=== PATIENT | female | born 1940 ===

== ENCOUNTER 2021-09-27 18:20 | Inpatient (IN) | payer MEDICARE ==
[2021-10-01] MEDS ORDERED: REMEDY ESSENTIAL ZINC PASTE 113 GM TOP SCH (21:00)
== END 2021-09-28 15:49 | disposition home or self-care (01) | DRG 951 ==
PROVIDERS: ADMIT Nurse Practitioner Acute Care; ATTEND Nurse Practitioner Acute Care
DX: Z00.00 Encounter for general adult medical examination without abnormal findings (principal)

== ENCOUNTER 2021-10-01 21:35 | Inpatient (IN) | payer MEDICARE ==
[~2021-10-01] VITALS: Ht 175.3 cm; Wt 65.8 kg
--- NOTE | 2021-10-01 21:17 | NUR ---
Patient arrived in the unit via gurney from [facility], accompanied by EMT's. Awake, alert and oriented x 3, able to verbalized needs and concern. In no apparent distress noted, calm and cooperative. Oriented to staff, room, call light, bed
--- NOTE | 2021-10-01 21:49 | NUR ---
Safety measures and fall precaution initiated. Routine admission care done. Plan of care initiated.
[2021-10-01 21:51] VITALS: BP 114/68
[2021-10-01] MEDS ORDERED: LACT-246 PO (22:27)
[2021-10-01] MEDS ORDERED: ESCI20TA PO (22:27)
[2021-10-01] MEDS ORDERED: NITR1OIN2 TP (22:27)
[2021-10-01] MEDS ORDERED: PANT40TA49 PO (22:27)
[2021-10-01] MEDS ORDERED: VALS80TA2 PO (22:27)
[2021-10-01] MEDS ORDERED: TEMA15CA PO (22:27)
[2021-10-01] MEDS ORDERED: CEFA2PLA10 IV (22:27)
[2021-10-01] MEDS ORDERED: METO50TA16 PO (22:27)
[2021-10-01] MEDS ORDERED: HYDR100T27 PO (22:27)
[2021-10-01] MEDS ORDERED: APIX5TAB PO (22:27)
[2021-10-01] MEDS ORDERED: MEMA10TA PO (22:27)
[2021-10-01] MEDS ORDERED: LEVO75TA7 PO (22:27)
[2021-10-01] MEDS ORDERED: DONE5TAB34 PO (22:27)
[2021-10-01] MEDS ORDERED: ASPI81TA31 PO (22:27)
[2021-10-01] MEDS ORDERED: NIFE60TA2 PO (22:27)
[2021-10-01] MEDS ORDERED: ACET-3117 PO (22:27)
[2021-10-02] MEDS: NITROGLYCERIN OINT 1 GM PACKET TP SCH ×3 (01:00→20:37)
[2021-10-02] MEDS: METOPROLOL TARTRATE 50 MG TABLET PO SCH ×4 (01:20→17:39)
[2021-10-02] MEDS ORDERED: VANCOMYCIN IV 400 ML ONE (02:46)
[2021-10-02] MEDS ORDERED: CEFAZOLIN 1 G VIAL ONE (03:07)
[2021-10-02] MEDS: CEFAZOLIN 2 G in IV DEXTROSE 5% 100 ML IV SCH ×3 (03:21→19:25)
[2021-10-02 04:15] VITALS: BP 125/69
[2021-10-02] MEDS: LEVOTHYROXINE SODIUM 75 MCG TABLET PO SCH (06:16)
[2021-10-02] MEDS: PANTOPRAZOLE SODIUM 40 MG TABLET.DR PO SCH (06:16)
[2021-10-02] MEDS: hydrALAZINE HCL 50 MG TABLET PO SCH ×3 (06:17→22:30)
--- NOTE | 2021-10-02 06:33 | NUR ---
Shift End Report: Slept good. Reoriented to time and place. No significant event reported all night. All needs attended and met. Continue current rehab plan of care. No complaint presented. VS stable.
[2021-10-02 07:56] VITALS: BP 141/93
[2021-10-02] MEDS: DONEPEZIL 5 MG TABLET PO SCH ×2 (09:25→20:33)
[2021-10-02] MEDS: MEMANTINE HCL 10 MG TABLET PO SCH ×2 (09:25→20:33)
[2021-10-02] MEDS: ASPIRIN 81 MG TAB.CHEW PO SCH (09:25)
[2021-10-02] MEDS: VALSARTAN 80 MG TABLET PO SCH (09:25)
[2021-10-02] MEDS: NIFEdipine XL 60 MG TABSR PO SCH (09:26)
[2021-10-02] MEDS: ESCITALOPRAM OXALATE 10 MG TABLET PO SCH (09:26)
[2021-10-02] MEDS: REMEDY ESSENTIAL ZINC PASTE 113 GM TOP SCH ×2 (09:27→20:35)
[2021-10-02] MEDS: APIXABAN 5 MG TABLET PO SCH ×2 (09:27→20:35)
[2021-10-02] MEDS: ENSURE WITH FIBER 237 ML LIQUID (CHOCOLATE) PO SCH ×2 (09:34→17:39)
[2021-10-02 15:40] VITALS: BP 112/52
--- NOTE | 2021-10-02 18:43 | NUR ---
Received Pt AAO X 1-2. Noted with periods of confusion and disorientation able to let simple needs known respiration even and unlabored, no SOB at room air. Up with PT /OT able for evaluation tolerated well, incontinent of bowel and bladder good astrid care rendered.No C/O of pain or acute distress noted. All needs attended, family nephew visited. Call light placed within reach. Bed in low position with bed alarm on. Will continue to monitor for comfort and safety
[2021-10-02 19:53] VITALS: BP 123/51
[2021-10-02] MEDS: TEMAZEPAM 15 MG CAPSULE PO PRN (20:39)
[2021-10-03] MEDS: METOPROLOL TARTRATE 50 MG TABLET PO SCH ×4 (00:07→17:35)
[2021-10-03] MEDS: CEFAZOLIN 2 G in IV DEXTROSE 5% 100 ML IV SCH ×3 (02:55→19:10)
[2021-10-03 04:58] VITALS: BP 156/80
[2021-10-03] MEDS: LEVOTHYROXINE SODIUM 75 MCG TABLET PO SCH (05:38)
[2021-10-03] MEDS: PANTOPRAZOLE SODIUM 40 MG TABLET.DR PO SCH (05:39)
[2021-10-03] MEDS: hydrALAZINE HCL 50 MG TABLET PO SCH ×3 (05:39→23:03)
[2021-10-03 07:32] VITALS: BP 173/87
[2021-10-03] MEDS: ASPIRIN 81 MG TAB.CHEW PO SCH (09:02)
[2021-10-03] MEDS: DONEPEZIL 5 MG TABLET PO SCH ×2 (09:02→21:38)
[2021-10-03] MEDS: VALSARTAN 80 MG TABLET PO SCH (09:02)
[2021-10-03] MEDS: APIXABAN 5 MG TABLET PO SCH ×2 (09:03→21:40)
[2021-10-03] MEDS: REMEDY ESSENTIAL ZINC PASTE 113 GM TOP SCH ×2 (09:04→21:39)
[2021-10-03] MEDS: MEMANTINE HCL 10 MG TABLET PO SCH ×2 (09:04→21:38)
[2021-10-03] MEDS: ENSURE WITH FIBER 237 ML LIQUID (CHOCOLATE) PO SCH ×2 (09:04→17:35)
[2021-10-03] MEDS: ESCITALOPRAM OXALATE 10 MG TABLET PO SCH (09:04)
[2021-10-03] MEDS: NIFEdipine XL 60 MG TABSR PO SCH (09:04)
[2021-10-03] MEDS: NITROGLYCERIN OINT 1 GM PACKET TP SCH ×2 (09:05→21:39)
--- NOTE | 2021-10-03 13:21 | NUR ---
Notified DR Caballero pt compliant of low back pain when moving, with new order for Tylenol 650 mg PO TID for pain order noted and carried out.
--- NOTE | 2021-10-03 15:52 | NUR ---
INTERDISCIPLINARY TEAM CONFERENCE
[2021-10-03 16:00] VITALS: BP 108/82
[2021-10-03] MEDS: ACETAMINOPHEN 325 MG TABLET PO SCH (17:34)
[2021-10-03 20:24] VITALS: BP 121/59
--- NOTE | 2021-10-03 20:45 | NUR ---
RECEIVED PATIENT IN HER ROOM IN BED. SHE IS NOTED A/O X 1. CALM AND COOPERATIVE. HER BREATHING IS EVEN AND UNLABORED. V/S STABLE. IV ON LEFT UPPER ARM NOTED INTACT AND PATENT. SAFETY AND FALL PRECAUTIONS ARE IN PLACE. PATIENT'S NEED ARE MET AT THIS TIME. WILL CONTINUE TO MONITOR.
[2021-10-04] MEDS: METOPROLOL TARTRATE 50 MG TABLET PO SCH ×5 (00:28→23:59)
[2021-10-04] MEDS: CEFAZOLIN 2 G in IV DEXTROSE 5% 100 ML IV SCH ×3 (03:14→18:01)
[2021-10-04 04:00] VITALS: BP 116/60
[2021-10-04] MEDS: PANTOPRAZOLE SODIUM 40 MG TABLET.DR PO SCH (06:06)
[2021-10-04] MEDS: hydrALAZINE HCL 50 MG TABLET PO SCH ×3 (06:06→22:27)
[2021-10-04] MEDS: LEVOTHYROXINE SODIUM 75 MCG TABLET PO SCH (06:06)
[2021-10-04 07:07] LABS: HEMATOCRIT 32.4 % (31.2-41.9); MEAN CORPUSCULAR HEMOGLOBIN 31.2 uug (24.7-32.8); MEAN CORPUSCULAR VOLUME 91.7 fL (75.5-95.3); PLATELET COUNT (AUTO) 589 K/uL (179-408)
[2021-10-04 07:25] LABS: THYROID STIMULATING HORMONE 3.306 mIU/mL (0.358-3.740)
[2021-10-04 07:32] LABS: BILIRUBIN,TOTAL 0.4 mg/dL (0.2-1.0); CREATININE 0.9 mg/dL (0.6-1.3); PHOSPHOROUS 2.4 mg/dL (2.5-4.9); POTASSIUM 3.3 mmol/L (3.5-5.1); TOTAL PROTEIN, SERUM 6.3 g/dL (6.4-8.2)
[2021-10-04 07:54] VITALS: BP 102/69
[2021-10-04] MEDS: ASPIRIN 81 MG TAB.CHEW PO SCH (08:33)
[2021-10-04] MEDS: ESCITALOPRAM OXALATE 10 MG TABLET PO SCH (08:34)
[2021-10-04] MEDS: VALSARTAN 80 MG TABLET PO SCH (08:34)
[2021-10-04] MEDS: DONEPEZIL 5 MG TABLET PO SCH ×2 (08:34→20:44)
[2021-10-04] MEDS: NIFEdipine XL 60 MG TABSR PO SCH (08:34)
[2021-10-04] MEDS: MEMANTINE HCL 10 MG TABLET PO SCH ×2 (08:34→20:45)
[2021-10-04] MEDS: NITROGLYCERIN OINT 1 GM PACKET TP SCH ×2 (08:35→20:47)
[2021-10-04] MEDS: ENSURE WITH FIBER 237 ML LIQUID (CHOCOLATE) PO SCH (08:35)
[2021-10-04] MEDS: ACETAMINOPHEN 325 MG TABLET PO SCH ×3 (08:35→17:14)
[2021-10-04] MEDS: REMEDY ESSENTIAL ZINC PASTE 113 GM TOP SCH ×2 (08:35→20:45)
[2021-10-04] MEDS: APIXABAN 5 MG TABLET PO SCH ×2 (08:36→20:48)
[2021-10-04] MEDS ORDERED: NEUTRA PHOS PACKET PO ONE ×2 (09:00→10:00)
[2021-10-04] MEDS ORDERED: POTASSIUM CHLORIDE 20 MEQ TAB.PRT.SR PO ONE (10:00)
[2021-10-04 15:16] LABS: *BILIRUBIN,URIN NEGATIVE (NEGATIVE); *BLOOD, URINE NEGATIVE (NEGATIVE); *CLARITY,URINE CLEAR (CLEAR); *COLOR,URINE YELLOW (YELLOW); *KETONES,URINE NEGATIVE (NEGATIVE); *UROBILINOGEN,URINE 0.2 E.U./dl (NORMAL); LEUKOCYTE ESTERASE ,URINE TRACE (NEGATIVE); NITRITE, URINE NEGATIVE (NEGATIVE); UGLUCOSE NEGATIVE (NEGATIVE)
[2021-10-04] MEDS: PROTEIN SUPPLEMENT (PROSTAT) 30 ML LIQUID PO SCH ×2 (15:17→17:15)
[2021-10-04] MEDS: ENSURE ENLIVE (VAN) 240 ML LIQUID PO SCH ×2 (15:17→17:15)
[2021-10-04 15:39] LABS: RBC,URINE 0-3 /HPF (0-3)
[2021-10-04 15:40] LABS: BACTERIA,URINE FEW /HPF (NONE SEEN); SQUAMOUS EPITHELIAL CELL,UR MODERATE /HPF (NONE SEEN)
[2021-10-04 15:43] VITALS: BP 104/51
--- NOTE | 2021-10-04 16:14 | NUR ---
INDIVIDUALIZED PLAN OF CARE
--- NOTE | 2021-10-04 18:07 | NUR ---
Patient tolerated care well throughout shift. Patient complaining of pain during PT/OT, but managed through medicinal interventions. Patient alert and oriented x 2-3, but forgetful during shift. Patient complaining of wanting to go home, but reeducated about purpose with rehab. IV site patent and intact. Bed left in lowest position with call light within reach. Will endorse information to PM nurse.
[2021-10-04 20:03] VITALS: BP_SYST 104; BP_SYST 133; BP_DIAS 55; BP_DIAS 79
[2021-10-04] MEDS: TEMAZEPAM 15 MG CAPSULE PO PRN (20:50)
--- NOTE | 2021-10-05 00:28 | NUR ---
IV out, re-inserted G#20 x 1 to Left Hand , with good blood return. Secured with tegaderm and Covan dressing. Patient tolerated procedure well.
[2021-10-05] MEDS: CEFAZOLIN 2 G in IV DEXTROSE 5% 100 ML IV SCH ×3 (03:03→18:05)
[2021-10-05 04:04] VITALS: BP 112/76
[2021-10-05] MEDS: LEVOTHYROXINE SODIUM 75 MCG TABLET PO SCH (06:07)
[2021-10-05] MEDS: PANTOPRAZOLE SODIUM 40 MG TABLET.DR PO SCH (06:07)
[2021-10-05] MEDS: hydrALAZINE HCL 50 MG TABLET PO SCH ×3 (06:08→21:20)
[2021-10-05] MEDS: METOPROLOL TARTRATE 50 MG TABLET PO SCH ×4 (06:09→23:47)
[2021-10-05 07:49] VITALS: BP 135/72
[2021-10-05] MEDS: ACETAMINOPHEN 325 MG TABLET PO SCH ×3 (08:32→16:49)
[2021-10-05] MEDS: ESCITALOPRAM OXALATE 10 MG TABLET PO SCH (08:32)
[2021-10-05] MEDS: ASPIRIN 81 MG TAB.CHEW PO SCH (08:32)
[2021-10-05] MEDS: VALSARTAN 80 MG TABLET PO SCH (08:32)
[2021-10-05] MEDS: NIFEdipine XL 60 MG TABSR PO SCH (08:33)
[2021-10-05] MEDS: DONEPEZIL 5 MG TABLET PO SCH ×2 (08:33→20:22)
[2021-10-05] MEDS: MEMANTINE HCL 10 MG TABLET PO SCH ×2 (08:33→20:27)
[2021-10-05] MEDS: APIXABAN 5 MG TABLET PO SCH ×2 (08:35→20:26)
[2021-10-05] MEDS: ENSURE ENLIVE (VAN) 240 ML LIQUID PO SCH ×3 (08:35→16:49)
[2021-10-05] MEDS: PROTEIN SUPPLEMENT (PROSTAT) 30 ML LIQUID PO SCH ×2 (08:35→16:49)
[2021-10-05] MEDS: REMEDY ESSENTIAL ZINC PASTE 113 GM TOP SCH ×2 (08:35→20:28)
[2021-10-05] MEDS: NITROGLYCERIN OINT 1 GM PACKET TP SCH ×2 (08:35→20:27)
[2021-10-05] MEDS: HYDROCODONE/APAP 5-325MG TABLET PO PRN (10:04)
--- NOTE | 2021-10-05 10:59 | NUR ---
Patient complaining of lower back pain. Dr. Ruth notified. Appropriate orders placed. Medication administered. Patient now resting comfortably in bed.
--- NOTE | 2021-10-05 12:42 | NUR ---
Patient seen by Doctor at bedside. Patient sleeping during 's assessment. Will endorse information to patient upon waking.
[2021-10-05 15:16] VITALS: BP 101/52
[2021-10-05 16:15] VITALS: BP 121/62
--- NOTE | 2021-10-05 18:32 | NUR ---
Patient tolerated care well throughout shift. Patient seen by Dr. Ruth. Patient educated with up to date care. IV site in need of flushing multiple times, but patent when flushed. Patient tolerated PT/OT today. Bed left in lowest position with call light within reach. Will endorse information to PM nurse.
[2021-10-05 20:00] VITALS: BP 148/65
--- NOTE | 2021-10-06 03:00 | NUR ---
IV out, inserted a new IV access on RFA #22. Patent and intact, flushed with NS. Secured with Coban wrap.
[2021-10-06] MEDS: CEFAZOLIN 2 G in IV DEXTROSE 5% 100 ML IV SCH ×3 (04:00→19:40)
[2021-10-06 04:55] VITALS: BP 158/93
[2021-10-06] MEDS: hydrALAZINE HCL 50 MG TABLET PO SCH ×3 (06:15→21:08)
[2021-10-06] MEDS: PANTOPRAZOLE SODIUM 40 MG TABLET.DR PO SCH (06:15)
[2021-10-06] MEDS: LEVOTHYROXINE SODIUM 75 MCG TABLET PO SCH (06:15)
[2021-10-06] MEDS: METOPROLOL TARTRATE 50 MG TABLET PO SCH ×3 (06:15→17:59)
[2021-10-06 08:17] VITALS: BP 156/86
[2021-10-06] MEDS: ASPIRIN 81 MG TAB.CHEW PO SCH (09:41)
[2021-10-06] MEDS: ACETAMINOPHEN 325 MG TABLET PO SCH ×3 (09:41→17:59)
[2021-10-06] MEDS: ESCITALOPRAM OXALATE 10 MG TABLET PO SCH (09:41)
[2021-10-06] MEDS: MEMANTINE HCL 10 MG TABLET PO SCH ×2 (09:42→20:40)
[2021-10-06] MEDS: APIXABAN 5 MG TABLET PO SCH ×2 (09:42→20:39)
[2021-10-06] MEDS: NIFEdipine XL 60 MG TABSR PO SCH (09:42)
[2021-10-06] MEDS: VALSARTAN 80 MG TABLET PO SCH (09:42)
[2021-10-06] MEDS: DONEPEZIL 5 MG TABLET PO SCH ×2 (09:43→20:40)
[2021-10-06] MEDS: ENSURE ENLIVE (VAN) 240 ML LIQUID PO SCH ×3 (09:44→18:00)
[2021-10-06] MEDS: NITROGLYCERIN OINT 1 GM PACKET TP SCH ×2 (09:45→20:41)
[2021-10-06] MEDS: REMEDY ESSENTIAL ZINC PASTE 113 GM TOP SCH ×2 (09:45→20:40)
[2021-10-06] MEDS: PROTEIN SUPPLEMENT (PROSTAT) 30 ML LIQUID PO SCH ×2 (09:46→18:00)
--- NOTE | 2021-10-06 14:02 | NUR ---
Dawn 5/ given by request prior to going for PT. Doccmented in error on different patient.
[2021-10-06 15:24] VITALS: BP 104/56
[2021-10-06 20:47] VITALS: BP 120/60
[2021-10-07] MEDS: CEFAZOLIN 2 G in IV DEXTROSE 5% 100 ML IV SCH ×3 (03:34→17:24)
[2021-10-07] MEDS: HYDROCODONE/APAP 5-325MG TABLET PO PRN ×2 (03:35→18:20)
[2021-10-07 04:35] VITALS: BP 142/69
[2021-10-07 06:06] LABS: CARBON DIOXIDE 31 mmol/L (21-32); CHLORIDE 91 mmol/L (98-107); CREATININE 0.9 mg/dL (0.6-1.3); GLUCOSE 131 mg/dL (74-106); MAGNESIUM 1.9 mg/dL (1.8-2.4); PHOSPHOROUS 2.8 mg/dL (2.5-4.9); POTASSIUM 3.3 mmol/L (3.5-5.1); UREA NITROGEN, BLOOD 21 mg/dL (7-18)
[2021-10-07] MEDS: PANTOPRAZOLE SODIUM 40 MG TABLET.DR PO SCH (06:31)
[2021-10-07] MEDS: METOPROLOL TARTRATE 50 MG TABLET PO SCH ×5 (06:31→23:33)
[2021-10-07] MEDS: hydrALAZINE HCL 50 MG TABLET PO SCH ×3 (06:31→21:43)
[2021-10-07] MEDS: LEVOTHYROXINE SODIUM 75 MCG TABLET PO SCH (06:32)
[2021-10-07 06:40] LABS: MEAN CORPUSCULAR VOLUME 90.9 fL (75.5-95.3); PLATELET COUNT (AUTO) 620 K/uL (179-408)
[2021-10-07 08:55] VITALS: BP 144/65
[2021-10-07] MEDS: VALSARTAN 80 MG TABLET PO SCH (09:45)
[2021-10-07] MEDS: MEMANTINE HCL 10 MG TABLET PO SCH ×2 (09:45→20:37)
[2021-10-07] MEDS: ESCITALOPRAM OXALATE 10 MG TABLET PO SCH (09:45)
[2021-10-07] MEDS: DONEPEZIL 5 MG TABLET PO SCH ×2 (09:45→20:37)
[2021-10-07] MEDS: NIFEdipine XL 60 MG TABSR PO SCH (09:45)
[2021-10-07] MEDS: ASPIRIN 81 MG TAB.CHEW PO SCH (09:46)
[2021-10-07] MEDS: NITROGLYCERIN OINT 1 GM PACKET TP SCH ×2 (09:46→20:37)
[2021-10-07] MEDS: REMEDY ESSENTIAL ZINC PASTE 113 GM TOP SCH ×2 (09:46→20:38)
[2021-10-07] MEDS: ENSURE ENLIVE (VAN) 240 ML LIQUID PO SCH ×3 (09:47→17:25)
[2021-10-07] MEDS: APIXABAN 5 MG TABLET PO SCH ×2 (09:47→20:41)
[2021-10-07] MEDS: PROTEIN SUPPLEMENT (PROSTAT) 30 ML LIQUID PO SCH ×2 (09:47→17:25)
[2021-10-07] MEDS: ACETAMINOPHEN 325 MG TABLET PO SCH ×3 (09:51→17:21)
[2021-10-07] MEDS ORDERED: POTASSIUM CHLORIDE 20 MEQ TAB.PRT.SR PO ONE (12:00)
--- NOTE | 2021-10-07 13:50 | NUR ---
CRYING AND C/O DIFFICULTY BREATHING. HAVING A PANIC ATTACK. VS TAKEN. BP 103/59. PULSE 66. RESP 22 AND HYPERVENTILATING. REPOSITIONED. HOB UP. O2 SAT. 98-100% ON R/A. SONAM RICHTER INTERSTATE PLANNER NOTIFIED. NO ORDERS.
--- NOTE | 2021-10-07 14:00 | NUR ---
DOZING AT INTERVALS. COMFORTABLE AT THIS TIME.
[2021-10-07 16:52] VITALS: BP 132/64
[2021-10-07 20:06] VITALS: BP 133/67
[2021-10-07] MEDS: TEMAZEPAM 15 MG CAPSULE PO PRN (20:43)
[2021-10-08] MEDS: CEFAZOLIN 2 G in IV DEXTROSE 5% 100 ML IV SCH ×3 (02:35→19:02)
[2021-10-08 04:09] VITALS: BP 143/75
[2021-10-08] MEDS: hydrALAZINE HCL 50 MG TABLET PO SCH ×3 (06:00→21:45)
[2021-10-08] MEDS: METOPROLOL TARTRATE 50 MG TABLET PO SCH ×3 (06:00→17:12)
[2021-10-08] MEDS: PANTOPRAZOLE SODIUM 40 MG TABLET.DR PO SCH (06:01)
[2021-10-08] MEDS: LEVOTHYROXINE SODIUM 75 MCG TABLET PO SCH (06:01)
[2021-10-08] MEDS: HYDROCODONE/APAP 10-325 MG TABLET PO PRN ×2 (06:08→13:27)
[2021-10-08 08:04] VITALS: BP 130/63
[2021-10-08] MEDS: ASPIRIN 81 MG TAB.CHEW PO SCH (08:42)
[2021-10-08] MEDS: ACETAMINOPHEN 325 MG TABLET PO SCH ×3 (08:43→17:12)
[2021-10-08] MEDS: DONEPEZIL 5 MG TABLET PO SCH ×2 (08:43→20:48)
[2021-10-08] MEDS: MEMANTINE HCL 10 MG TABLET PO SCH ×2 (08:43→20:48)
[2021-10-08] MEDS: ESCITALOPRAM OXALATE 10 MG TABLET PO SCH (08:43)
[2021-10-08] MEDS: NIFEdipine XL 60 MG TABSR PO SCH (08:43)
[2021-10-08] MEDS: VALSARTAN 80 MG TABLET PO SCH (08:44)
[2021-10-08] MEDS: APIXABAN 5 MG TABLET PO SCH ×2 (08:45→20:50)
[2021-10-08] MEDS: REMEDY ESSENTIAL ZINC PASTE 113 GM TOP SCH ×2 (08:46→20:49)
[2021-10-08] MEDS: PROTEIN SUPPLEMENT (PROSTAT) 30 ML LIQUID PO SCH ×2 (08:46→17:13)
[2021-10-08] MEDS: ENSURE ENLIVE (VAN) 240 ML LIQUID PO SCH ×3 (08:46→17:13)
[2021-10-08] MEDS: NITROGLYCERIN OINT 1 GM PACKET TP SCH ×2 (08:47→20:48)
[2021-10-08 16:29] VITALS: BP 122/62
[2021-10-08 20:00] VITALS: BP 127/59
[2021-10-08] MEDS: TEMAZEPAM 15 MG CAPSULE PO PRN (20:50)
[2021-10-09] MEDS: METOPROLOL TARTRATE 50 MG TABLET PO SCH ×4 (00:01→17:52)
[2021-10-09] MEDS: CEFAZOLIN 2 G in IV DEXTROSE 5% 100 ML IV SCH ×3 (03:00→19:04)
[2021-10-09 04:00] VITALS: BP 122/66
[2021-10-09] MEDS: hydrALAZINE HCL 50 MG TABLET PO SCH ×3 (05:55→22:24)
[2021-10-09] MEDS: LEVOTHYROXINE SODIUM 75 MCG TABLET PO SCH (06:20)
[2021-10-09] MEDS: PANTOPRAZOLE SODIUM 40 MG TABLET.DR PO SCH (06:20)
[2021-10-09 07:53] VITALS: BP 129/66
[2021-10-09] MEDS: ASPIRIN 81 MG TAB.CHEW PO SCH (08:05)
[2021-10-09] MEDS: ESCITALOPRAM OXALATE 10 MG TABLET PO SCH (08:05)
[2021-10-09] MEDS: VALSARTAN 80 MG TABLET PO SCH (08:05)
[2021-10-09] MEDS: ACETAMINOPHEN 325 MG TABLET PO SCH ×3 (08:05→16:48)
[2021-10-09] MEDS: MEMANTINE HCL 10 MG TABLET PO SCH ×2 (08:05→20:24)
[2021-10-09] MEDS: DONEPEZIL 5 MG TABLET PO SCH ×2 (08:05→20:24)
[2021-10-09] MEDS: ENSURE ENLIVE (VAN) 240 ML LIQUID PO SCH ×2 (08:06→12:28)
[2021-10-09] MEDS: NIFEdipine XL 60 MG TABSR PO SCH (08:06)
[2021-10-09] MEDS: APIXABAN 5 MG TABLET PO SCH ×2 (08:06→20:27)
[2021-10-09] MEDS: PROTEIN SUPPLEMENT (PROSTAT) 30 ML LIQUID PO SCH ×2 (08:06→16:48)
[2021-10-09] MEDS: NITROGLYCERIN OINT 1 GM PACKET TP SCH ×2 (08:31→20:26)
[2021-10-09] MEDS: HYDROCODONE/APAP 10-325 MG TABLET PO PRN (08:31)
[2021-10-09] MEDS: REMEDY ESSENTIAL ZINC PASTE 113 GM TOP SCH ×2 (08:32→20:27)
[2021-10-09] MEDS: GLUCERNA SHAKE 237 ML CAN PO SCH ×2 (15:02→16:48)
[2021-10-09 16:16] VITALS: BP 124/58
[2021-10-09 20:00] VITALS: BP 125/65
[2021-10-09] MEDS: TEMAZEPAM 15 MG CAPSULE PO PRN (20:28)
[2021-10-10] MEDS: METOPROLOL TARTRATE 50 MG TABLET PO SCH ×6 (01:01→23:52)
[2021-10-10] MEDS: CEFAZOLIN 2 G in IV DEXTROSE 5% 100 ML IV SCH ×3 (02:25→19:47)
[2021-10-10 04:00] VITALS: BP 106/70
[2021-10-10] MEDS: LEVOTHYROXINE SODIUM 75 MCG TABLET PO SCH (06:14)
[2021-10-10] MEDS: PANTOPRAZOLE SODIUM 40 MG TABLET.DR PO SCH (06:14)
[2021-10-10] MEDS: hydrALAZINE HCL 50 MG TABLET PO SCH ×4 (06:14→21:42)
[2021-10-10 07:01] LABS: CARBON DIOXIDE 32 mmol/L (21-32); CHLORIDE 88 mmol/L (98-107); CREATININE 0.9 mg/dL (0.6-1.3); GLUCOSE 101 mg/dL (74-106); PHOSPHOROUS 2.9 mg/dL (2.5-4.9); POTASSIUM 3.4 mmol/L (3.5-5.1); UREA NITROGEN, BLOOD 24 mg/dL (7-18); URIC ACID 3.5 mg/dL (2.6-6.0)
[2021-10-10 07:54] LABS: THYROID STIMULATING HORMONE 3.472 mIU/mL (0.358-3.740)
[2021-10-10] MEDS: ASPIRIN 81 MG TAB.CHEW PO SCH (08:26)
[2021-10-10] MEDS: ACETAMINOPHEN 325 MG TABLET PO SCH (08:26)
[2021-10-10] MEDS: ESCITALOPRAM OXALATE 10 MG TABLET PO SCH (08:27)
[2021-10-10] MEDS: APIXABAN 5 MG TABLET PO SCH ×2 (08:27→20:14)
[2021-10-10] MEDS: VALSARTAN 80 MG TABLET PO SCH (08:31)
[2021-10-10] MEDS: DONEPEZIL 5 MG TABLET PO SCH ×2 (08:31→20:13)
[2021-10-10] MEDS: NIFEdipine XL 60 MG TABSR PO SCH (08:31)
[2021-10-10] MEDS: NITROGLYCERIN OINT 1 GM PACKET TP SCH ×2 (08:31→20:14)
[2021-10-10] MEDS: MEMANTINE HCL 10 MG TABLET PO SCH ×2 (08:31→20:13)
[2021-10-10] MEDS: PROTEIN SUPPLEMENT (PROSTAT) 30 ML LIQUID PO SCH ×2 (08:46→17:16)
[2021-10-10] MEDS: GLUCERNA SHAKE 237 ML CAN PO SCH ×3 (08:46→17:16)
[2021-10-10] MEDS: HYDROCODONE/APAP 10-325 MG TABLET PO PRN (08:51)
[2021-10-10] MEDS: REMEDY ESSENTIAL ZINC PASTE 113 GM TOP SCH ×2 (08:58→20:15)
[2021-10-10 09:03] VITALS: BP 125/67
[2021-10-10] MEDS ORDERED: POTASSIUM CHLORIDE 20 MEQ TAB.PRT.SR PO ONE (10:30)
[2021-10-10] MEDS: HYDROCODONE/APAP 10-325 MG TABLET PO SCH (13:43)
--- NOTE | 2021-10-10 15:58 | NUR ---
INTERDISCIPLINARY TEAM CONFERENCE
[2021-10-10 16:52] VITALS: BP 119/58
[2021-10-10 20:06] VITALS: BP 113/56
[2021-10-11] MEDS: CEFAZOLIN 2 G in IV DEXTROSE 5% 100 ML IV SCH ×3 (02:36→18:09)
[2021-10-11 04:46] VITALS: BP 145/76
[2021-10-11] MEDS: PANTOPRAZOLE SODIUM 40 MG TABLET.DR PO SCH (06:04)
[2021-10-11] MEDS: hydrALAZINE HCL 50 MG TABLET PO SCH ×3 (06:05→22:11)
[2021-10-11] MEDS: LEVOTHYROXINE SODIUM 75 MCG TABLET PO SCH (06:05)
[2021-10-11] MEDS: METOPROLOL TARTRATE 50 MG TABLET PO SCH ×3 (06:05→18:17)
--- NOTE | 2021-10-11 06:34 | NUR ---
Pt slept intermittently throughout the night, easily arousable for care. No significant changes noted. Assisted in turning and repositioning. All needs attended. Call light placed within reach. Will endorse to next shift for continuity of care.
[2021-10-11 06:47] LABS: CREATININE 0.9 mg/dL (0.6-1.3); MAGNESIUM 1.9 mg/dL (1.8-2.4); PHOSPHOROUS 3.2 mg/dL (2.5-4.9); POTASSIUM 3.5 mmol/L (3.5-5.1)
[2021-10-11 06:57] LABS: THYROID STIMULATING HORMONE 3.294 mIU/mL (0.358-3.740)
[2021-10-11 07:30] VITALS: BP 149/75
[2021-10-11] MEDS: HYDROCODONE/APAP 10-325 MG TABLET PO SCH ×2 (08:24→13:16)
[2021-10-11] MEDS: ASPIRIN 81 MG TAB.CHEW PO SCH (08:25)
[2021-10-11] MEDS: APIXABAN 5 MG TABLET PO SCH ×2 (08:25→21:06)
[2021-10-11] MEDS: MEMANTINE HCL 10 MG TABLET PO SCH ×2 (08:25→21:06)
[2021-10-11] MEDS: ESCITALOPRAM OXALATE 10 MG TABLET PO SCH (08:25)
[2021-10-11] MEDS: DONEPEZIL 5 MG TABLET PO SCH ×2 (08:25→21:06)
[2021-10-11] MEDS: NITROGLYCERIN OINT 1 GM PACKET TP SCH ×2 (08:30→21:07)
[2021-10-11] MEDS: NIFEdipine XL 60 MG TABSR PO SCH (08:30)
[2021-10-11] MEDS: REMEDY ESSENTIAL ZINC PASTE 113 GM TOP SCH ×2 (08:30→21:08)
--- NOTE | 2021-10-11 08:30 | NUR ---
Received patient in bed, sleeping. But easily arousable for care. No significant changes noted. Assisted in turning and repositioning. All needs attended. Call light placed within reach
[2021-10-11] MEDS: GLUCERNA SHAKE 237 ML CAN PO SCH ×3 (08:36→17:21)
[2021-10-11] MEDS: PROTEIN SUPPLEMENT (PROSTAT) 30 ML LIQUID PO SCH ×2 (09:00→17:21)
[2021-10-11] MEDS: VALSARTAN 80 MG TABLET PO SCH (09:00)
--- NOTE | 2021-10-11 15:00 | NUR ---
Patient is sleeping intermittently, asked where is she right now and what is she doing here. Patient was re-oriented. Patient is not in pain or any distress. Due to decreased blood pressure (101/59, and then later on 115/58) scheduled metoprolol and hydralazine weren't administered.
[2021-10-11 16:00] VITALS: BP 107/65
[2021-10-11 20:06] VITALS: BP 122/53
[2021-10-12] MEDS: CEFAZOLIN 2 G in IV DEXTROSE 5% 100 ML IV SCH ×3 (02:28→17:48)
[2021-10-12 04:06] VITALS: BP 125/50
[2021-10-12] MEDS: hydrALAZINE HCL 50 MG TABLET PO SCH ×3 (05:52→21:03)
[2021-10-12] MEDS: METOPROLOL TARTRATE 50 MG TABLET PO SCH ×4 (05:52→17:50)
[2021-10-12] MEDS: LEVOTHYROXINE SODIUM 75 MCG TABLET PO SCH (06:04)
[2021-10-12] MEDS: PANTOPRAZOLE SODIUM 40 MG TABLET.DR PO SCH (06:04)
[2021-10-12 06:53] LABS: HEMATOCRIT 31.8 % (31.2-41.9); MEAN CORPUSCULAR HEMOGLOBIN 31.6 uug (24.7-32.8); MEAN CORPUSCULAR VOLUME 91.6 fL (75.5-95.3); PLATELET COUNT (AUTO) 540 K/uL (179-408)
[2021-10-12 08:12] LABS: CREATININE 0.8 mg/dL (0.6-1.3); POTASSIUM 3.2 mmol/L (3.5-5.1)
[2021-10-12 08:18] LABS: BILIRUBIN,TOTAL 0.4 mg/dL (0.2-1.0)
[2021-10-12 08:22] VITALS: BP 125/80
[2021-10-12 08:57] LABS: MAGNESIUM 1.9 mg/dL (1.8-2.4); PHOSPHOROUS 3.1 mg/dL (2.5-4.9)
[2021-10-12] MEDS: VALSARTAN 80 MG TABLET PO SCH (09:30)
[2021-10-12] MEDS: DONEPEZIL 5 MG TABLET PO SCH ×2 (09:30→20:47)
[2021-10-12] MEDS: ASPIRIN 81 MG TAB.CHEW PO SCH (09:30)
[2021-10-12] MEDS: NIFEdipine XL 60 MG TABSR PO SCH (09:31)
[2021-10-12] MEDS: ESCITALOPRAM OXALATE 10 MG TABLET PO SCH (09:31)
[2021-10-12] MEDS: NITROGLYCERIN OINT 1 GM PACKET TP SCH ×2 (09:31→20:54)
[2021-10-12] MEDS: MEMANTINE HCL 10 MG TABLET PO SCH ×2 (09:31→20:46)
[2021-10-12] MEDS: APIXABAN 5 MG TABLET PO SCH ×2 (09:32→20:55)
[2021-10-12] MEDS: GLUCERNA SHAKE 237 ML CAN PO SCH ×3 (09:32→17:51)
[2021-10-12] MEDS: REMEDY ESSENTIAL ZINC PASTE 113 GM TOP SCH ×2 (09:47→21:03)
[2021-10-12] MEDS: PROTEIN SUPPLEMENT (PROSTAT) 30 ML LIQUID PO SCH ×2 (09:47→17:50)
[2021-10-12] MEDS: HYDROCODONE/APAP 10-325 MG TABLET PO SCH ×2 (09:51→15:44)
[2021-10-12] MEDS: POTASSIUM CHLORIDE 20 MEQ TAB.PRT.SR PO ONE ×2 (09:54→11:16)
[2021-10-12 17:14] VITALS: BP 136/70
[2021-10-12] MEDS ORDERED: HYDROCODONE/APAP 5-325MG TABLET PO PRN (20:15)
[2021-10-12] MEDS ORDERED: MIRALAX 17 GM POWD.PACK PO PRN (20:15)
[2021-10-12] MEDS: DOCUSATE SODIUM 100 MG CAPSULE PO SCH (20:46)
[2021-10-12 21:16] VITALS: BP 150/81
[2021-10-13] MEDS: METOPROLOL TARTRATE 50 MG TABLET PO SCH ×4 (00:21→18:02)
[2021-10-13 05:12] VITALS: BP 184/80
[2021-10-13] MEDS: hydrALAZINE HCL 50 MG TABLET PO SCH ×3 (05:13→21:08)
[2021-10-13] MEDS: PANTOPRAZOLE SODIUM 40 MG TABLET.DR PO SCH (06:00)
[2021-10-13] MEDS: LEVOTHYROXINE SODIUM 75 MCG TABLET PO SCH (06:03)
[2021-10-13 07:40] VITALS: BP 170/80
[2021-10-13] MEDS: NITROGLYCERIN OINT 1 GM PACKET TP SCH ×2 (08:25→21:02)
[2021-10-13] MEDS: HYDROCODONE/APAP 10-325 MG TABLET PO SCH ×2 (08:26→12:55)
[2021-10-13] MEDS: ESCITALOPRAM OXALATE 10 MG TABLET PO SCH (08:26)
[2021-10-13] MEDS: MEMANTINE HCL 10 MG TABLET PO SCH ×2 (08:26→21:01)
[2021-10-13] MEDS: NIFEdipine XL 60 MG TABSR PO SCH (08:26)
[2021-10-13] MEDS: ASPIRIN 81 MG TAB.CHEW PO SCH (08:27)
[2021-10-13] MEDS: DONEPEZIL 5 MG TABLET PO SCH ×2 (08:27→21:01)
[2021-10-13] MEDS: GLUCERNA SHAKE 237 ML CAN PO SCH ×3 (08:27→18:00)
[2021-10-13] MEDS: VALSARTAN 80 MG TABLET PO SCH (08:28)
[2021-10-13] MEDS: PROTEIN SUPPLEMENT (PROSTAT) 30 ML LIQUID PO SCH ×2 (08:28→18:01)
[2021-10-13] MEDS: APIXABAN 5 MG TABLET PO SCH ×2 (08:28→21:03)
[2021-10-13] MEDS: REMEDY ESSENTIAL ZINC PASTE 113 GM TOP SCH ×2 (08:29→21:14)
[2021-10-13 16:00] VITALS: BP 141/70
[2021-10-13 20:00] VITALS: BP 161/73
[2021-10-13] MEDS: DOCUSATE SODIUM 100 MG CAPSULE PO SCH (21:00)
[2021-10-14] MEDS: METOPROLOL TARTRATE 50 MG TABLET PO SCH ×4 (00:33→17:09)
[2021-10-14] MEDS: hydrALAZINE HCL 50 MG TABLET PO SCH ×3 (05:36→22:00)
[2021-10-14 05:46] VITALS: BP 164/76
[2021-10-14] MEDS: PANTOPRAZOLE SODIUM 40 MG TABLET.DR PO SCH (06:05)
[2021-10-14] MEDS: LEVOTHYROXINE SODIUM 75 MCG TABLET PO SCH (06:06)
[2021-10-14 07:32] VITALS: BP 168/79
[2021-10-14] MEDS: HYDROCODONE/APAP 10-325 MG TABLET PO SCH ×2 (08:13→13:52)
[2021-10-14] MEDS: VALSARTAN 80 MG TABLET PO SCH ×2 (08:35→21:51)
[2021-10-14] MEDS: NIFEdipine XL 60 MG TABSR PO SCH (08:35)
[2021-10-14] MEDS: DONEPEZIL 5 MG TABLET PO SCH ×2 (08:36→21:52)
[2021-10-14] MEDS: ASPIRIN EC 81 MG TABLET.DR PO SCH (08:36)
[2021-10-14] MEDS: NITROGLYCERIN OINT 1 GM PACKET TP SCH ×2 (08:37→22:00)
[2021-10-14] MEDS: MEMANTINE HCL 10 MG TABLET PO SCH ×2 (08:37→21:52)
[2021-10-14] MEDS: PROTEIN SUPPLEMENT (PROSTAT) 30 ML LIQUID PO SCH ×2 (08:38→17:06)
[2021-10-14] MEDS: REMEDY ESSENTIAL ZINC PASTE 113 GM TOP SCH ×2 (08:38→21:52)
[2021-10-14] MEDS: ESCITALOPRAM OXALATE 10 MG TABLET PO SCH (08:38)
[2021-10-14] MEDS: GLUCERNA SHAKE 237 ML CAN PO SCH ×3 (08:39→17:05)
[2021-10-14] MEDS: APIXABAN 5 MG TABLET PO SCH ×2 (08:39→21:52)
[2021-10-14] MEDS ORDERED: POTASSIUM CHLORIDE 10 MEQ TAB.PRT.SR PO SCH (09:30)
[2021-10-14 16:00] VITALS: BP 108/57
[2021-10-14 20:00] VITALS: BP 135/72
[2021-10-14] MEDS ORDERED: VALSARTAN 160 MG TABLET PO SCH (21:00)
[2021-10-14] MEDS: DOCUSATE SODIUM 100 MG CAPSULE PO SCH (21:52)
--- NOTE | 2021-10-14 22:00 | NUR ---
Pt refused Apresoline at 2200H. Pt sated she has a lot of bp meds.
--- NOTE | 2021-10-15 00:30 | NUR ---
Lopressor 50 mg prn non-administered > Pt refused her medication.
[2021-10-15 04:00] VITALS: BP 149/83
--- NOTE | 2021-10-15 05:37 | NUR ---
Pt slept intermittently. No significant changes noted. Prescribed medication given and pt tolerated it well. All needs attended. Call light placed within reach. Will endorse to next shift for continuity of care.
[2021-10-15] MEDS: METOPROLOL TARTRATE 50 MG TABLET PO SCH ×3 (05:57→12:28)
[2021-10-15] MEDS: hydrALAZINE HCL 50 MG TABLET PO SCH ×2 (05:58→14:00)
[2021-10-15] MEDS: LEVOTHYROXINE SODIUM 75 MCG TABLET PO SCH (06:00)
[2021-10-15] MEDS: PANTOPRAZOLE SODIUM 40 MG TABLET.DR PO SCH (06:00)
[2021-10-15 07:16] LABS: CREATININE 0.7 mg/dL (0.6-1.3); POTASSIUM 4.7 mmol/L (3.5-5.1)
[2021-10-15 07:43] VITALS: BP 145/79
[2021-10-15] MEDS: NITROGLYCERIN OINT 1 GM PACKET TP SCH (08:31)
[2021-10-15] MEDS: HYDROCODONE/APAP 10-325 MG TABLET PO SCH ×2 (08:33→13:00)
[2021-10-15] MEDS: ESCITALOPRAM OXALATE 10 MG TABLET PO SCH (08:34)
[2021-10-15] MEDS: DONEPEZIL 5 MG TABLET PO SCH (08:34)
[2021-10-15] MEDS: ASPIRIN EC 81 MG TABLET.DR PO SCH (08:34)
[2021-10-15] MEDS: NIFEdipine XL 60 MG TABSR PO SCH (08:34)
[2021-10-15] MEDS: APIXABAN 5 MG TABLET PO SCH (08:35)
[2021-10-15] MEDS: MEMANTINE HCL 10 MG TABLET PO SCH (08:36)
[2021-10-15] MEDS ORDERED: POTASSIUM CHLORIDE 10 MEQ TAB.PRT.SR PO SCH (09:00)
[2021-10-15] MEDS: GLUCERNA SHAKE 237 ML CAN PO SCH ×2 (10:11→12:28)
[2021-10-15] MEDS: PROTEIN SUPPLEMENT (PROSTAT) 30 ML LIQUID PO SCH (10:17)
[2021-10-15] MEDS: REMEDY ESSENTIAL ZINC PASTE 113 GM TOP SCH (10:18)
[2021-10-15] MEDS: VALSARTAN 80 MG TABLET PO SCH (10:30)
--- NOTE | 2021-10-15 15:25 | NUR ---
Dr. Caballero saw patient and discharge order received from .
[2021-10-15 15:29] VITALS: BP 105/51
--- NOTE | 2021-10-15 15:45 | NUR ---
Informed Dr. Coleman regarding sodium level and per MD patient is OK to discharge.
--- NOTE | 2021-10-15 16:35 | NUR ---
Discharged patient to [facility]. Patient picked up by [facility] ambulance, transferred via gurney. Patient remains awake, alert oriented x 2, not in any form of distress, on room air. She denies any pain or discomfort. Vital signs stable. Report given to Lindy GANDHI from [facility].
== END 2021-10-15 16:35 | DRG 871 ==
PROVIDERS: ADMIT Physical Medicine & Rehabilitation Pain Medicine; ATTEND Physical Medicine & Rehabilitation Pain Medicine
PROC: 05HC33Z Insertion of Infusion Device into Left Basilic Vein, Percutaneous Approach (ICD-10-PCS; principal; 2021-10-02)
PROC: 05HA33Z Insertion of Infusion Device into Left Brachial Vein, Percutaneous Approach (ICD-10-PCS; 2021-10-08)
DX: A41.01 Sepsis due to Methicillin susceptible Staphylococcus aureus (principal); G92.8 Other toxic encephalopathy; I50.33 Acute on chronic diastolic (congestive) heart failure; N17.0 Acute kidney failure with tubular necrosis; E87.2 Acidosis; E87.1 Hypo-osmolality and hyponatremia; D68.59 Other primary thrombophilia; M62.82 Rhabdomyolysis; E11.9 Type 2 diabetes mellitus without complications; I48.91 Unspecified atrial fibrillation; E88.09 Other disorders of plasma-protein metabolism, not elsewhere classified; K44.9 Diaphragmatic hernia without obstruction or gangrene; K62.89 Other specified diseases of anus and rectum; R62.7 Adult failure to thrive; D64.9 Anemia, unspecified; E03.9 Hypothyroidism, unspecified; E87.6 Hypokalemia; R53.1 Weakness; F02.80 Dementia in other diseases classified elsewhere, unspecified severity, without behavioral disturbance, psychotic disturbance, mood disturbance, and anxiety; G30.9 Alzheimer's disease, unspecified; I08.0 Rheumatic disorders of both mitral and aortic valves; I11.0 Hypertensive heart disease with heart failure; I70.0 Atherosclerosis of aorta; K59.00 Constipation, unspecified; N26.1 Atrophy of kidney (terminal); M41.9 Scoliosis, unspecified; M19.90 Unspecified osteoarthritis, unspecified site; F32.9 Major depressive disorder, single episode, unspecified
CPT/HCPCS: 36415; 71045; 83735; 83935; 84100; 84300; 84443; 84550; 85025; 87086; 97161; 97535-GO-CO; A4663; J0690; J3370